=== PATIENT | female | born 1990 | race Caucasian/White ===

== ENCOUNTER 2020-08-13 18:40 | Observation (INO) | payer OTHER ==
[~2020-08-13] VITALS: Ht 157.5 cm; Wt 98.4 kg
[2020-08-13] MEDS ORDERED: TRA200 PO (19:27)
[2020-08-13] MEDS: LABETALOL 100 MG TAB PO SCH (20:04)
[2020-08-13 20:31] VITALS: BP 141/73
[2020-08-13] MEDS: ZOLPIDEM 5 MG TAB PO SCH (21:14)
--- NOTE | 2020-08-14 08:27 | NUR ---
PATIENT HAS BEEN SCREENED AND CATEGORIZED LOW NUTRITION RISK. PATIENT WILL BE SEEN WITHIN 7 DAYS OF ADMISSION. 08/20/[address]
[2020-08-14] MEDS: LABETALOL 200 MG TAB PO SCH (09:22)
== END 2020-08-14 14:15 | disposition home or self-care (01) ==
LOC: MLD 18:40 → MFCC 20:09
PROVIDERS: ADMIT Obstetrics & Gynecology; ATTEND Obstetrics & Gynecology
DX: O14.93 Unspecified pre-eclampsia, third trimester (principal); O16.3 Unspecified maternal hypertension, third trimester; Z90.49 Acquired absence of other specified parts of digestive tract; Z3A.29 29 weeks gestation of pregnancy
CPT/HCPCS: 59025; 76815; 81000; G0378

== ENCOUNTER 2020-09-20 17:30 | Observation (INO) | payer OTHER ==
[~2020-09-20] VITALS: Ht 154.9 cm; Wt 103.9 kg
[~2020-09-20 17:30] MED LIST: TRA200 PO
[2020-09-20 18:05] VITALS: BP 134/78
[2020-09-20] MEDS ORDERED: PNV91TAB8 PO (18:35)
[2020-09-20] MEDS ORDERED: ZOLPIDEM 5 MG TAB PO PRN (19:00)
[2020-09-20] MEDS: LABETALOL 200 MG TAB PO SCH (21:45)
--- NOTE | 2020-09-21 08:35 | NUR ---
PATIENT HAS BEEN SCREENED AND CATEGORIZED LOW NUTRITION RISK. PATIENT WILL BE SEEN WITHIN 7 DAYS OF ADMISSION. 09/27/[address]
[2020-09-21] MEDS: LABETALOL 200 MG TAB PO SCH (09:03)
[2020-09-22] MEDS ORDERED: BETAMETH ACET/BETAMETH NA PH 30 MG/5 ML VIAL IM ONE (16:16)
[2020-09-22] MEDS ORDERED: AMPICILLIN 2,000 MG VIAL ONE (16:16)
== END 2020-09-21 15:00 | disposition home or self-care (01) ==
LOC: MLD 17:30
PROVIDERS: ADMIT Obstetrics & Gynecology; ATTEND Obstetrics & Gynecology
DX: O13.3 Gestational [pregnancy-induced] hypertension without significant proteinuria, third trimester (principal); Z3A.34 34 weeks gestation of pregnancy
CPT/HCPCS: 76815; G0378; J0290; J0702

== ENCOUNTER 2020-09-22 14:25 | Inpatient (IN) | payer OTHER, SELFPAY ==
[~2020-09-22] VITALS: Ht 154.9 cm; Wt 103.9 kg
[~2020-09-22 14:25] MED LIST changes: +PNV91TAB8 PO
[2020-09-22] MEDS ORDERED: PHENAZOPYRIDINE 100 MG TAB PO SCH (15:00)
[2020-09-22] MEDS: LACTATED RINGERS 1,000 ML IV SCH ×2 (16:15→18:29)
[2020-09-22] MEDS: AMPICILLIN 2,000 MG in NACL 0.9% 100 ML IV SCH (16:22)
[2020-09-22] MEDS: BETAMETH ACET/BETAMETH NA PH 30 MG/5 ML VIAL IM SCH (16:23)
[2020-09-22 17:03] VITALS: BP 129/71
[2020-09-22 17:13] LABS: APPEARANCE,URINE CLEAR (CLEAR); COLOR,URINE YELLOW (YELLOW)
[2020-09-22 17:14] LABS: BILIRUBIN,URINE NEGATIVE (NEGATIVE); BLOOD, URINE NEGATIVE (NEGATIVE); LEUKOCYTE ESTERASE ,URINE NEGATIVE (NEGATIVE); NITRITE, URINE NEGATIVE (NEGATIVE); UGLUCOSE NEGATIVE (NEGATIVE)
[2020-09-22 17:40] LABS: BASOPHILS % (AUTO) 0.5 % (0.0-2.0); EOSINOPHILS % (AUTO) 0.5 % (0.0-4.0); HEMATOCRIT 36.7 % (36-48); HEMOGLOBIN 12.5 g/dL (12.0-16.0); LYMPHOCYTES # (AUTO) 1.9 K/uL (2.5-16.5); LYMPHOCYTES % (AUTO) 21.5 % (20.5-51.1); MEAN CORPUSCULAR HEMOGLOBIN 30 pg (27-31); MEAN CORPUSCULAR HGB CONC 34 g/dL (33-37); MEAN CORPUSCULAR VOLUME 88.1 fL (80-94); MONOCYTES # (AUTO) 0.6 K/uL (0.8-1.0); MONOCYTES % (AUTO) 6.8 % (1.7-9.3); NEUTROPHILS # (AUTO) 6.4 K/uL (1.8-7.7); NEUTROPHILS % (AUTO) 70.7 % (42.2-75.2); PLATELET COUNT (AUTO) 232 K/uL (140-450); RED BLOOD CELL COUNT(AUTO) 4.17 MIL/uL (4.20-5.40); RED CELL DISTRIBUTION WIDTH 13.4 % (11.6-13.7)
[2020-09-22] MEDS: LABETALOL 200 MG TAB PO SCH (21:00)
[2020-09-22] MEDS ORDERED: ZOLPIDEM 5 MG TAB PO SCH (21:00)
[2020-09-22] MEDS ORDERED: AMPICILLIN 2,000 MG VIAL ONE (23:01)
[2020-09-23] MEDS ORDERED: AMPICILLIN 2,000 MG VIAL ONE ×4 (04:21→13:47)
[2020-09-23] MEDS: BETAMETH ACET/BETAMETH NA PH 30 MG/5 ML VIAL IM SCH (04:31)
[2020-09-23] MEDS: AMPICILLIN 2,000 MG in NACL 0.9% 100 ML IV SCH ×3 (04:31→15:02)
[2020-09-23] MEDS: LABETALOL 200 MG TAB PO SCH ×2 (09:40→23:32)
[2020-09-23] MEDS ORDERED: MULTIVIT/MIN/CA/FE/FA 1 TAB ONE (09:42)
[2020-09-23] MEDS: MULTIVIT/MIN/CA/FE/FA 1 TAB PO SCH (09:43)
--- NOTE | 2020-09-23 10:08 | NUR ---
PATIENT HAS BEEN SCREENED AND CATEGORIZED LOW NUTRITION RISK. PATIENT WILL BE SEEN WITHIN 7 DAYS OF ADMISSION. 09/29/20 VLADIMIR POE MBA, RD
[2020-09-23 14:29] LABS: BASOPHILS % (AUTO) 0.1 % (0.0-2.0); HEMATOCRIT 35.4 % (36-48); LYMPHOCYTES # (AUTO) 1.2 K/uL (2.5-16.5); MEAN CORPUSCULAR HEMOGLOBIN 30 pg (27-31); MEAN CORPUSCULAR HGB CONC 34 g/dL (33-37); MEAN CORPUSCULAR VOLUME 88.9 fL (80-94); MONOCYTES # (AUTO) 0.5 K/uL (0.8-1.0); MONOCYTES % (AUTO) 4.1 % (1.7-9.3); NEUTROPHILS # (AUTO) 10.1 K/uL (1.8-7.7); NEUTROPHILS % (AUTO) 85.8 % (42.2-75.2); PLATELET COUNT (AUTO) 244 K/uL (140-450); RED BLOOD CELL COUNT(AUTO) 3.98 MIL/uL (4.20-5.40); RED CELL DISTRIBUTION WIDTH 13.2 % (11.6-13.7); WHITE BLOOD COUNT (AUTO) 11.8 K/uL (4.8-10.8)
[2020-09-23] MEDS: LACTATED RINGERS 1,000 ML IV SCH ×3 (15:39→19:32)
[2020-09-23] MEDS ORDERED: NALBUPHINE 10 MG/ML AMP IVP PRN (15:45)
[2020-09-23] MEDS ORDERED: PROMETHAZINE 25 MG/ML VIAL IM PRN (15:45)
[2020-09-23] MEDS ORDERED: PROMETHAZINE 25 MG/ML VIAL ONE (15:47)
[2020-09-23] MEDS ORDERED: LIDOCAINE 1% 500 MG/50 ML VIAL ONE (17:30)
[2020-09-23] MEDS ORDERED: OXYTOCIN 20 UNITS/LR PREMIX 1,000 ML IV ONE (17:31)
[2020-09-23] MEDS ORDERED: OXYTOCIN 10 UNITS/ML VIAL ONE ×3 (17:31→21:10)
[2020-09-23] MEDS ORDERED: ROPIVACAINE 0.2%/NS PREMIX 200 ML EPI ONE (17:51)
[2020-09-23] MEDS ORDERED: TERBUTALINE 1 MG/ML VIAL SUBQ ONE (19:23)
[2020-09-23] MEDS ORDERED: MEPERIDINE 50 MG/ML SYR ONE (19:38)
[2020-09-23] MEDS ORDERED: MEPERIDINE 25 MG/ML SYR IVP ONE (19:40)
[2020-09-23] MEDS ORDERED: MEPERIDINE 50 MG/ML SYR IVP SCH (19:40)
[2020-09-23 20:39] LABS: ALBUMIN 1.7 g/dL (3.4-5.0); ANION GAP 21.6 (8-16); CARBON DIOXIDE 15.5 mmol/L (21-32); CREATININE 0.5 mg/dL (0.6-1.3); POTASSIUM 4.1 mmol/L (3.5-5.1); TOTAL BILIRUBIN 0.3 mg/dL (0.0-1.0)
[2020-09-23] MEDS ORDERED: TERBUTALINE 1 MG/ML VIAL SUBQ SCH (21:05)
[2020-09-23] MEDS ORDERED: CARBOPROST 250 MCG/ML AMP IM ONE (21:09)
[2020-09-23] MEDS ORDERED: SEVOFLURANE 250 ML BTL INH ONE (21:10)
[2020-09-23] MEDS ORDERED: MIDAZOLAM 2 MG/2 ML VIAL ONE (21:10)
[2020-09-23] MEDS ORDERED: OXYTOCIN 10 UNITS/ML VIAL IM SCH (21:10)
[2020-09-23] MEDS ORDERED: fentaNYL citrate 0.05 MG/ML VIAL ONE (21:10)
[2020-09-23] MEDS ORDERED: CARBOPROST 250 MCG/ML AMP IM SCH (21:10)
[2020-09-23] MEDS ORDERED: LIDOCAINE 2% 100 MG/5 ML SYR IVP ONE (21:10)
[2020-09-23] MEDS ORDERED: PROPOFOL 200 MG/20 ML VIAL IV ONE (21:10)
[2020-09-23] MEDS ORDERED: ONDANSETRON 4 MG/2 ML VIAL ONE (21:10)
[2020-09-23] MEDS ORDERED: DEXAMETHASONE 4 MG/ML VIAL ONE (21:10)
[2020-09-23] MEDS ORDERED: METOCLOPRAMIDE 10 MG/2 ML INJ VIAL ONE (21:10)
[2020-09-23] MEDS ORDERED: OXYTOCIN 20 UNITS in LACTATED RINGERS 1,000 ML IV SCH ×2 (21:55→22:15)
[2020-09-23] MEDS ORDERED: HYDROmorphone 1 MG/ML AMP IVP PRN (21:55)
[2020-09-23] MEDS ORDERED: MEPERIDINE 25 MG/ML SYR IVP PRN (21:55)
[2020-09-23] MEDS ORDERED: DOCUSATE SODIUM 100 MG GELCAP PO PRN (22:15)
[2020-09-23] MEDS ORDERED: bisacodyL 5 MG TABEC PO PRN (22:15)
[2020-09-23] MEDS ORDERED: ACETAMINOPHEN 325 MG TAB PO PRN (22:15)
[2020-09-23] MEDS ORDERED: MEASLES, MUMPS, AND RUBELLA 1 VIAL SQVAC ONE (22:15)
[2020-09-23] MEDS ORDERED: IBUPROFEN 600 MG TAB PO PRN (22:15)
[2020-09-23] MEDS ORDERED: MISOPROSTOL 25 MCG TAB RC SCH (22:15)
[2020-09-23] MEDS ORDERED: MISOPROSTOL 200 MCG TAB ONE (22:56)
[2020-09-24] MEDS ORDERED: OXYTOCIN 20 UNITS/LR PREMIX 1,000 ML IV ONE (02:15)
[2020-09-24 08:26] LABS: BASOPHILS # (AUTO) 0.1 K/uL (0.00-0.22); BASOPHILS % (AUTO) 0.7 % (0.0-2.0); HEMATOCRIT 33.2 % (36-48); HEMOGLOBIN 11.2 g/dL (12.0-16.0); LYMPHOCYTES # (AUTO) 1.6 K/uL (2.5-16.5); LYMPHOCYTES % (AUTO) 9.3 % (20.5-51.1); MEAN CORPUSCULAR HEMOGLOBIN 30 pg (27-31); MEAN CORPUSCULAR HGB CONC 34 g/dL (33-37); MEAN CORPUSCULAR VOLUME 89.1 fL (80-94); MONOCYTES % (AUTO) 6.1 % (1.7-9.3); NEUTROPHILS # (AUTO) 14.3 K/uL (1.8-7.7); NEUTROPHILS % (AUTO) 83.9 % (42.2-75.2); PLATELET COUNT (AUTO) 250 K/uL (140-450); RED BLOOD CELL COUNT(AUTO) 3.73 MIL/uL (4.20-5.40); RED CELL DISTRIBUTION WIDTH 13.7 % (11.6-13.7); WHITE BLOOD COUNT (AUTO) 17.1 K/uL (4.8-10.8)
[2020-09-24] MEDS: LABETALOL 200 MG TAB PO SCH ×2 (09:04→21:01)
[2020-09-24] MEDS ORDERED: ZOLPIDEM 5 MG TAB PO SCH (21:00)
[2020-09-25] MEDS: MULTIVIT/MIN/CA/FE/FA 1 TAB PO SCH (09:14)
[2020-09-25] MEDS: LABETALOL 200 MG TAB PO SCH (09:15)
== END 2020-09-25 14:00 | disposition home or self-care (01) | DRG 541 ==
LOC: MLD 14:25 → MFCC 16:00 → OBSVTOIN 09-23 15:44 → MLD 09-23 17:29 → MFCC 09-23 23:17
PROVIDERS: ADMIT Obstetrics & Gynecology; ATTEND Obstetrics & Gynecology
PROC: 10D17ZZ Extraction of Products of Conception, Retained, Via Natural or Artificial Opening (ICD-10-PCS; 2020-09-23)
PROC: 00HU33Z Insertion of Infusion Device into Spinal Canal, Percutaneous Approach (ICD-10-PCS; 2020-09-23)
PROC: 3E0R3BZ Introduction of Anesthetic Agent into Spinal Canal, Percutaneous Approach (ICD-10-PCS; 2020-09-23)
PROC: 10E0XZZ Delivery of Products of Conception, External Approach (ICD-10-PCS; principal; 2020-09-23 20:00)
PROC: 3E0234Z Introduction of Serum, Toxoid and Vaccine into Muscle, Percutaneous Approach (ICD-10-PCS; 2020-09-24)
DX: O42.913 Preterm premature rupture of membranes, unspecified as to length of time between rupture and onset of labor, third trimester (principal); O60.14X0 Preterm labor third trimester with preterm delivery third trimester, not applicable or unspecified; Z37.0 Single live birth; O72.0 Third-stage hemorrhage; O99.824 Streptococcus B carrier state complicating childbirth; Z23 Encounter for immunization; Z20.822 Contact with and (suspected) exposure to COVID-19
CPT/HCPCS: 36415; 51702; 59409; 76815; 80053; 81003; 85025; 86592; 86886; 86900; 86901; 87070; 87653-90; 90715; G0378; J0290; J0702; J1100; J2001; J2175; J2250; J2300; J2405; J2550; J2590; J2704; J2765; J2795; J3010; J3105; J3490; J7120